=== PATIENT | female | born 1950 | race Caucasian/White ===

== ENCOUNTER → 2025-08-04 | Outpatient (CLI) | payer OTHER ==
[~2025-08-04] MED LIST: ASPI81CH PO; ATEN25 PO; Adipex-P37.5 MG PO; ESOM20 PO; FISH1000 PO; FURO20 PO; GABA300 PO; GLIP5ER PO; LEVO750 PO; LEVSOD100 PO; LOSA50 PO; METF500C PO; Micro-K10 MEQ PO; NAPR220 PO; PIOG15 PO
[2025-08-04 20:33] LABS: Creatinine, Urine Random 70.6 mg/dL (27.00-270.00); Microalb/Creat Ratio UR, Rand 28.045 mg/g (0.000-30.000); Microalbumin, Random Urine 19.8 mg/L (0.000-20.000)
== END ==
LOC: LAB 15:21 → LAB SHORT 15:21
PROVIDERS: Family Medicine
DX: E11.42 Type 2 diabetes mellitus with diabetic polyneuropathy (principal); E11.69 Type 2 diabetes mellitus with other specified complication; Z79.4 Long term (current) use of insulin
CPT/HCPCS: 82043; 82570